=== PATIENT | female | born 1965 | race Hispanic/Latino ===

== ENCOUNTER 2021-10-30 10:20 | Emergency (ER) | payer BC ==
[~2021-10-30] VITALS: Ht 157.5 cm; Wt 93.1 kg
[2021-10-30] MEDS ORDERED: LOSARTAN-HCTZ1 EACH (12:11)
[2021-10-30] MEDS ORDERED: TESSALON PERLE100 MG PO (12:39)
[2021-10-30] MEDS ORDERED: PREDNISONE20 MG PO (12:39)
[2021-10-30] MEDS ORDERED: AZITHROMYCIN250 MG PO (12:39)
[2021-10-30] MEDS ORDERED: VENTOLIN HFA18 GM INH (12:39)
== END 2021-10-30 12:55 | disposition home or self-care (01) ==
LOC: FSED 11:44
DX: J06.9 Acute upper respiratory infection, unspecified (principal); Z86.16 Personal history of COVID-19; I10 Essential (primary) hypertension; Z88.5 Allergy status to narcotic agent
CPT/HCPCS: 83518; 87400; 99283